=== PATIENT | male | born 2000 | race Hispanic/Latino ===

== ENCOUNTER 2021-07-21 09:32 | Emergency (ER) | payer OTHER ==
[~2021-07-21] VITALS: Ht 172.7 cm; Wt 86.3 kg
[2021-07-21] MEDS ORDERED: HYDR1CAP25 PO (12:42)
[2021-07-21 13:33] VITALS: BP 137/77
== END 2021-07-21 13:35 | disposition home or self-care (01) ==
LOC: M ED 09:32
DX: G47.00 Insomnia, unspecified (principal); F17.200 Nicotine dependence, unspecified, uncomplicated